=== PATIENT | female | born 1950 | race Caucasian/White ===

== ENCOUNTER 2017-01-20 16:44 | Emergency (ER) | payer BC ==
[~2017-01-20] VITALS: Ht 157.5 cm; Wt 68.0 kg
[2017-01-20 16:58] VITALS: BP 121/63; PULSE 68; RESP 15; TEMP 98.1
[2017-01-20] MEDS ORDERED: DOXE25CA2 PO (17:00)
[2017-01-20] MEDS ORDERED: LEVO25TA4 PO (17:00)
--- NOTE | 2017-01-20 17:30 | PD ---
HPI Chief Complaint: Psychiatric Symptoms Time Seen by Provider: 17:04 Travel History International Travel<30 days: No Contact w/Intl Traveler<30days: No Traveled to known affect area: No History of Present Illness HPI 66yo F with PMH of hypothyroidism presents to the ED under Monsalve Act because she was found in someone else's house and she thought it was a cottage that she rented. Pt appeared confused. She is AAOx3 and denies any complaints. She said that she is not sure where her things are. Denies any suicidal or homicidal ideations. No signs of intoxication or trauma. No focal neurologic deficits on exam. PFSH Past Medical History Asthma: Yes Diminished Hearing: No Insomnia: Yes Influenza Vaccination: No Past Surgical History Hysterectomy: Yes Social History Alcohol Use: No Tobacco Use: No Substance Use: No Allergies-Medications (Allergen,Severity, Reaction): Coded Allergies: codeine (Verified Adverse Reaction, Mild, Nausea/Vomiting, 01/20/17) Reported Meds & Prescriptions Reported Meds & Active Scripts Active Reported Doxepin (Doxepin HCl) 25 Mg Cap 25 Mg PO HS Levothyroxine (Levothyroxine Sodium) 25 Mcg Tab 25 Mcg PO DAILY Review of Systems Except as stated in HPI: all other systems reviewed are Neg Physical Exam Narrative GENERAL: 66yo F not in distress. SKIN: Focused skin assessment warm/dry. HEAD: Atraumatic. Normocephalic. EYES: Pupils equal and round at 3mm bilaterally. EOMI. ENT: No nasal bleeding or discharge. Mucous membranes pink and moist. NECK: Trachea midline. No JVD. CARDIOVASCULAR: Regular rate and rhythm. No murmur appreciated. RESPIRATORY: No accessory muscle use. Clear to auscultation. Breath sounds equal bilaterally. GASTROINTESTINAL: Abdomen soft, non-tender, nondistended. No rebound tenderness or guarding. MUSCULOSKELETAL: No obvious deformities. No clubbing. No cyanosis. No edema. NEUROLOGICAL: Awake and alert. No obvious cranial nerve deficits. Motor grossly within normal limits. Normal speech. Data Data Last Documented VS Vital Signs Date Time Temp Pulse Resp B/P (MAP) Pulse Ox O2 Delivery O2 Flow Rate FiO2 01/20/17 16:58 98.1 68 15 121/63 (82) Room Air Orders Orders Complete Blood Count With Diff (01/20/17 17:13) Comprehensive Metabolic Panel (01/20/17 17:13) Thyroid Stimulating Hormone (01/20/17 17:13) Urinalysis - C+S If Indicated (01/20/17 17:13) Psych Screen (01/20/17 17:13) Drug Screen, Random Urine (01/20/17 17:13) Alcohol (Ethanol) (01/20/17 17:13) Salicylates (Aspirin) (01/20/17 17:13) Tylenol (Acetaminophen) (01/20/17 17:13) Ct Brain W/O Iv Contrast(Rout) (01/20/17 ) Urine Culture (01/20/17 18:00) Sulfamet-Trimeth Ds 800-160 Mg (Bactrim (01/20/17 19:15) Thyroxine (T4) (01/20/17 19:42) Labs Laboratory Tests Test 01/20/17 18:00 01/20/17 18:09 Urine Color YELLOW Urine Turbidity HAZY Urine pH 5.5 Urine Specific [place] 1.024 Urine Protein TRACE mg/dL Urine Glucose (UA) NEG mg/dL Urine Ketones 10 mg/dL Urine Occult Blood TRACE Urine Nitrite NEG Urine Bilirubin NEG Urine Urobilinogen LESS THAN 2.0 MG/DL Urine Leukocyte Esterase LARGE Urine RBC 17 /hpf Urine WBC 95 /hpf Urine Squamous Epithelial Cells 1 /hpf Urine Mucus FEW /lpf Microscopic Urinalysis Comment CULTURE INDICATED Urine Opiates Screen NEG Urine Barbiturates Screen NEG Urine Amphetamines Screen NEG Urine Benzodiazepines Screen POS Urine Cocaine Screen NEG Urine Cannabinoids Screen NEG White Blood Count 7.3 TH/MM3 Red Blood Count 4.30 MIL/MM3 Hemoglobin 13.5 GM/DL Hematocrit 38.6 % Mean Corpuscular Volume 89.8 FL Mean Corpuscular Hemoglobin 31.3 PG Mean Corpuscular Hemoglobin Concent 34.9 % Red Cell Distribution Width 13.0 % Platelet Count 183 TH/MM3 Mean Platelet Volume 11.0 FL Neutrophils (%) (Auto) 69.8 % Lymphocytes (%) (Auto) 21.9 % Monocytes (%) (Auto) 7.1 % Eosinophils (%) (Auto) 0.5 % Basophils (%) (Auto) 0.7 % Neutrophils # (Auto) 5.1 TH/MM3 Lymphocytes # (Auto) 1.6 TH/MM3 Monocytes # (Auto) 0.5 TH/MM3 Eosinophils # (Auto) 0.0 TH/MM3 Basophils # (Auto) 0.0 TH/MM3 CBC Comment DIFF FINAL Differential Comment Blood Urea Nitrogen 24 MG/DL Creatinine 1.07 MG/DL Random Glucose 82 MG/DL Total Protein 7.4 GM/DL Albumin 4.3 GM/DL Calcium Level 9.6 MG/DL Alkaline Phosphatase 135 U/L Aspartate Amino Transf (AST/SGOT) 30 U/L Alanine Aminotransferase (ALT/SGPT) 25 U/L Total Bilirubin 0.6 MG/DL Sodium Level 138 MEQ/L Potassium Level 3.4 MEQ/L Chloride Level 103 MEQ/L Carbon Dioxide Level 25.0 MEQ/L Anion Gap 10 MEQ/L Estimat Glomerular Filtration Rate 51 ML/MIN Thyroid Stimulating Hormone 3rd Gen 0.042 uIU/ML Salicylates Level LESS THAN 1.7 MG/DL Acetaminophen Level LESS THAN 2.0 MCG/ML Ethyl Alcohol Level LESS THAN 3 MG/DL MDM Medical Decision Making Medical Screen Exam Complete: Yes Emergency Medical Condition: Yes Differential Diagnosis Delirium vs. dementia vs. infection vs. psychosis Narrative Course 66yo F brought in under [employer] act because she was found in someone else's home and thought she had rented it. Pt has never been here before. Unknown if there is a psych history or if this is delirium. Vital signs stable. I discussed with pt's Brent Guzmán at [phone] who is out of state and said she was here for vacation and was suppose to rent a cottage. States she did rent the cottage but went to the wrong house. Said sometimes she takes sleeping medication at night and can get confused but has not driven to the wrong house and think that they scammed her before. Will do work up to r/o organic cause of altered mental status. Labs reviewed, no leukocytosis. K:3.4 , pt tolerating PO. BUN/creatinine mildly elevated at 24/1.07, can hydrate orally. TSH low at 0.042, T4 ordered. Pt can follow up with primary care physician as an outpatient. Utox positive for benzodiazepine. Alcohol, salicylate and acetaminophen negative. CR brain negative. UA positive for large leukocyte. WBC 95. Pt given bactrim PO here and will prescribe bactrim for UTI. Pt is medically clear for psych evaluation. Diagnosis Primary Impression: UTI (urinary tract infection) Qualified Codes: N39.0 - Urinary tract infection, site not specified; R31.9 - Hematuria, unspecified Additional Instructions: Please follow up with your primary care physician regarding your low thyroid stimulating hormone. Please take antibiotics as instructed for urinary tract infection. Return to the ED if symptoms worsen. Med/Other Pt SpecificInfo: Prescription(s) given Scripts Sulfamethoxazole-Trimethoprim (Bactrim DS) 800-160 Mg Tab 1 TAB PO BID for Infection, #14 TAB 0 Refills Prov: Baylee Farfan DO 01/20/17 Baylee Farfan DO Jan 20, 2017 17:30
--- NOTE | 2017-01-20 18:17 | RADRPT ---
EXAM DATE/TIME: 01/20/2017 17:47 [facility] COMPARISON: No previous studies available for comparison. INDICATIONS : Altered mental status. RADIATION DOSE: 56.35 CTDIvol (mGy) MEDICAL HISTORY : None SURGICAL HISTORY : Hysterectomy. ENCOUNTER: Initial ACUITY: 1 day PAIN SCALE: 0/10 LOCATION: cranial TECHNIQUE: Multiple contiguous axial images were obtained of the head. Using automated exposure control and adj ustment of the mA and/or kV according to patient size, radiation dose was kept as low as reasonably a chievable to obtain optimal diagnostic quality images. DICOM format image data is available electro nically for review and comparison. FINDINGS: CEREBRUM: The ventricles are normal for age. No evidence of midline shift, mass lesion, hemorrhage or acute in farction. No extra-axial fluid collections are seen. POSTERIOR FOSSA: The cerebellum and brainstem are intact. The 4th ventricle is midline. The cerebellopontine angle i s unremarkable. EXTRACRANIAL: There is mucoperiosteal thickening of the visualized paranasal sinuses. Fluid levels are seen in both maxillary air cells. SKULL: The calvaria is intact. No evidence of skull fracture. CONCLUSION: No acute intracranial abnormality. Sinus disease. Yanick Lawrence MD on January 20, 2017 at 18:15 Board Certified Radiologist. This report was verified electronically.
[2017-01-20 19:09] LABS: BLOOD, URINE TRACE (NEG); COMMENT (UR) CULTURE INDICATED; CULTURE IF INDICATED CULTURE INDICATED; GLUCOSE,URINE NEG (NEG); KETONE, URINE 10 mg/dL (NEG); MUCUS URINE FEW /lpf (OCC); NITRITE,URINE NEG (NEG); PH, URINE 5.5 (5.0-8.5); SQUAMOUS EPITHELIAL CELL URINE 1 /hpf (0-5); URINE COLOR YELLOW (YELLW/STRAW)
[2017-01-20 19:11] LABS: AUTOMATED NEUTROPHIL # 5.1 TH/MM3 (1.8-7.7); BASOPHIL % 0.7 % (0.0-2.0); EOSINOPHIL % 0.5 % (0.0-4.0); HEMATOCRIT 38.6 % (35.0-46.0); HEMO FLAGS DIFF FINAL; LYMPH % 21.9 % (9.0-44.0); LYMPHOCYTE # 1.6 TH/MM3 (1.0-4.8); MEAN CELL VOLUME 89.8 FL (80.0-100.0); MEAN CORPUSCULAR HEMOGLOBIN 31.3 PG (27.0-34.0); MEAN CORPUSCULAR HGB CONC 34.9 % (32.0-36.0); MONO % 7.1 % (0.0-8.0); NEUT % 69.8 % (16.0-70.0); PLATELET COUNT 183 TH/MM3 (150-450); WHITE BLOOD COUNT 7.3 TH/MM3 (4.0-11.0)
[2017-01-20] MEDS ORDERED: SULFAMETHOXAZOLE-TRIMETHOPRIM DS 800-160 MG TAB PO ONE (19:15)
[2017-01-20 19:27] LABS: ANION GAP 10 MEQ/L (5-15); AST (GOT) 30 U/L (15-37); BLOOD UREA NITROGEN 24 MG/DL (7-18); CHLORIDE 103 MEQ/L (98-107); GLOMERULAR FILTRATION RATE 51 ML/MIN (>89); POTASSIUM 3.4 MEQ/L (3.5-5.1); SODIUM (NA) 138 MEQ/L (136-145)
[2017-01-20 19:29] LABS: ALT (GPT) 25 U/L (10-53)
[2017-01-20 19:38] LABS: ALKALINE PHOSPHATASE 135 U/L (45-117); TOTAL BILIRUBIN ADULT 0.6 MG/DL (0.2-1.0)
[2017-01-20 19:39] LABS: ALCOHOL LESS THAN 3 MG/DL (0-5)
[2017-01-20 19:40] LABS: ACETAMINOPHEN LESS THAN 2.0 MCG/ML (10.0-30.0)
[2017-01-20] MEDS ORDERED: BACT800T5 PO (19:48)
[2017-01-20] MEDS ORDERED: ACETAMINOPHEN 325 MG TAB PO ONE (20:30)
[2017-01-20] MEDS ORDERED: DIAZEPAM 5 MG TAB PO ONE (22:00)
[2017-01-21 05:47] VITALS: BP 117/58; PULSE 62; RESP 16
[2017-01-21] MEDS ORDERED: SULFAMETHOXAZOLE-TRIMETHOPRIM DS 800-160 MG TAB PO SCH (09:00)
[2017-01-21 10:09] VITALS: BP 119/65; PULSE 75; RESP 18; O2SAT 100
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
[2017-01-21 14:32] VITALS: BP 134/70; PULSE 72; RESP 18; O2SAT 100
--- NOTE | 2017-01-21 14:46 | PD ---
Physical Exam Time Seen by Provider: 14:[address] Arias has evaluated patient, lifted Monsalve act, and the patient will be discharged home to her . Data Data Last Documented VS Vital Signs Date Time Temp Pulse Resp B/P (MAP) Pulse Ox O2 Delivery O2 Flow Rate FiO2 01/21/17 14:32 72 18 134/70 (91) 100 Room Air 01/20/17 16:58 98.1 Orders Orders Complete Blood Count With Diff (01/20/17 17:13) Comprehensive Metabolic Panel (01/20/17 17:13) Thyroid Stimulating Hormone (01/20/17 17:13) Urinalysis - C+S If Indicated (01/20/17 17:13) Psych Screen (01/20/17 17:13) Drug Screen, Random Urine (01/20/17 17:13) Alcohol (Ethanol) (01/20/17 17:13) Salicylates (Aspirin) (01/20/17 17:13) Tylenol (Acetaminophen) (01/20/17 17:13) Ct Brain W/O Iv Contrast(Rout) (01/20/17 ) Urine Culture (01/20/17 18:00) Sulfamet-Trimeth Ds 800-160 Mg (Bactrim (01/20/17 19:15) Thyroxine (T4) (01/20/17 19:42) Acetaminophen (Tylenol) (01/20/17 20:30) Diazepam (Valium) (01/20/17 22:00) Diet Regular Basic (01/21/17 Breakfast) Sulfamet-Trimeth Ds 800-160 Mg (Bactrim (01/21/17 09:00) Diet Regular Basic (01/21/17 Lunch) Labs Laboratory Tests Test 01/20/17 18:00 01/20/17 18:09 Urine Color YELLOW Urine Turbidity HAZY Urine pH 5.5 Urine Specific [place] 1.024 Urine Protein TRACE mg/dL Urine Glucose (UA) NEG mg/dL Urine Ketones 10 mg/dL Urine Occult Blood TRACE Urine Nitrite NEG Urine Bilirubin NEG Urine Urobilinogen LESS THAN 2.0 MG/DL Urine Leukocyte Esterase LARGE Urine RBC 17 /hpf Urine WBC 95 /hpf Urine Squamous Epithelial Cells 1 /hpf Urine Mucus FEW /lpf Microscopic Urinalysis Comment CULTURE INDICATED Urine Opiates Screen NEG Urine Barbiturates Screen NEG Urine Amphetamines Screen NEG Urine Benzodiazepines Screen POS Urine Cocaine Screen NEG Urine Cannabinoids Screen NEG White Blood Count 7.3 TH/MM3 Red Blood Count 4.30 MIL/MM3 Hemoglobin 13.5 GM/DL Hematocrit 38.6 % Mean Corpuscular Volume 89.8 FL Mean Corpuscular Hemoglobin 31.3 PG Mean Corpuscular Hemoglobin Concent 34.9 % Red Cell Distribution Width 13.0 % Platelet Count 183 TH/MM3 Mean Platelet Volume 11.0 FL Neutrophils (%) (Auto) 69.8 % Lymphocytes (%) (Auto) 21.9 % Monocytes (%) (Auto) 7.1 % Eosinophils (%) (Auto) 0.5 % Basophils (%) (Auto) 0.7 % Neutrophils # (Auto) 5.1 TH/MM3 Lymphocytes # (Auto) 1.6 TH/MM3 Monocytes # (Auto) 0.5 TH/MM3 Eosinophils # (Auto) 0.0 TH/MM3 Basophils # (Auto) 0.0 TH/MM3 CBC Comment DIFF FINAL Differential Comment Blood Urea Nitrogen 24 MG/DL Creatinine 1.07 MG/DL Random Glucose 82 MG/DL Total Protein 7.4 GM/DL Albumin 4.3 GM/DL Calcium Level 9.6 MG/DL Alkaline Phosphatase 135 U/L Aspartate Amino Transf (AST/SGOT) 30 U/L Alanine Aminotransferase (ALT/SGPT) 25 U/L Total Bilirubin 0.6 MG/DL Sodium Level 138 MEQ/L Potassium Level 3.4 MEQ/L Chloride Level 103 MEQ/L Carbon Dioxide Level 25.0 MEQ/L Anion Gap 10 MEQ/L Estimat Glomerular Filtration Rate 51 ML/MIN Thyroxine (T4) 14.0 MCG/DL Thyroid Stimulating Hormone 3rd Gen 0.042 uIU/ML Salicylates Level LESS THAN 1.7 MG/DL Acetaminophen Level LESS THAN 2.0 MCG/ML Ethyl Alcohol Level LESS THAN 3 MG/DL MDM Supervised Visit with SHARON: No Narrative Course Dr. Arias has evaluated the patient, lifted the Monsalve act and the patient will be discharged home. The patient's is coming to pick her up. Patient contracts safety. Denies suicidal or homicidal ideations. Patient will be provided community resource packet to [facility] for follow-up. Has friends and family for support. Patient is medically cleared for discharge. Diagnosis Primary Impression: Brief psychotic disorder Referrals: Primary Care Physician Psychiatrist Patient Instructions: Brief Psychotic Disorder (ED), General Instructions, Urinary Tract Infection in Women (ED) Additional Instruction: Please follow up with your primary care physician regarding your low thyroid stimulating hormone. Please take antibiotics as instructed for urinary tract infection. Return to the ED if symptoms worsen. Med/Other Pt SpecificInfo: Prescription(s) given Scripts Sulfamethoxazole-Trimethoprim (Bactrim DS) 800-160 Mg Tab 1 TAB PO BID for Infection, #14 TAB 0 Refills Prov: Baylee Farfan 01/20/17 Disposition: 01 DISCHARGE HOME Condition: Stable Areli Tobar Jan 21, 2017 14:46
== END 2017-01-21 15:52 | disposition home or self-care (01) ==
LOC: NEPD 16:44 → NEPJ 01-21 15:52
DX: F23 Brief psychotic disorder (principal); G47.00 Insomnia, unspecified; N39.0 Urinary tract infection, site not specified; R31.9 Hematuria, unspecified; J45.909 Unspecified asthma, uncomplicated
CPT/HCPCS: 70450; 80053; 80307; 81001; 84436; 84443; 85025; 87086; 99284